=== PATIENT | female | born 1960 | race Caucasian/White ===

== ENCOUNTER 2017-03-18 11:45 | Emergency (ER) | payer OTHER ==
[2017-03-18] MEDS ORDERED: Ketorolac 60 MG/2 ML SDV IM ONE (13:26)
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
[2017-03-18 14:07] VITALS: BP 122/71
== END 2017-03-18 14:04 | disposition home or self-care (01) ==
LOC: MW.ED 11:45
DX: M54.42 Lumbago with sciatica, left side (principal); E03.9 Hypothyroidism, unspecified; F17.210 Nicotine dependence, cigarettes, uncomplicated; Z90.710 Acquired absence of both cervix and uterus; Z96.649 Presence of unspecified artificial hip joint; Z96.659 Presence of unspecified artificial knee joint
CPT/HCPCS: 81001; 96372; 99283; J1885; J2360